=== PATIENT | female | born 1940 | race Caucasian/White ===

== ENCOUNTER 2020-06-21 14:06 | Outpatient (CLI) | payer MEDICARE, SELFPAY | END 2020-06-21 14:07 | disposition home or self-care (01) | LOC: ANHCOVIDVC 14:06 | PROVIDERS: PCP Family Medicine | DX: Z23 Encounter for immunization (principal) | CPT/HCPCS: 0001A; 91300 ==

== ENCOUNTER 2020-07-12 13:58 | Outpatient (CLI) | payer MEDICARE, SELFPAY | END 2020-07-12 13:59 | disposition home or self-care (01) | LOC: ANHCOVIDVC 13:58 | PROVIDERS: PCP Family Medicine | DX: Z23 Encounter for immunization (principal) | CPT/HCPCS: 0002A; 91300 ==

== ENCOUNTER 2021-01-07 15:48 | Outpatient (CLI) | payer MEDICARE, SELFPAY ==
--- NOTE | ~2021-01-07 | MM_ITS ---
EXAMINATION: MM screening imani BI w cameron HISTORY: Screening TECHNIQUE: Craniocaudal and mediolateral oblique 3-D tomosynthesis images were obtained and synthetic 2-D images were generated. CAD analysis was submitted and interpreted. COMPARISON: No prior mammogram is available for comparison at this institution. BREAST PARENCHYMAL COMPOSITION: Breast composed of scattered areas of fibroglandular density. FINDINGS: There are no suspicious masses, calcifications or architectural distortion in the left [address] to suggest malignancy. There is no evidence of suspicious mass, calcification, or architectural di stortion to suggest malignancy in either breast. Centered in the upper central aspect of the right br east. There is an additional focal mass inferiorly in the right breast on MLO view posteriorly. IMPRESSION: 1. Right breast mass, asymmetries and nonspecific calcifications. 2. Additional mammographic views and possible breast ultrasound are recommended. BI-RADS Category 0: Incomplete: Needs additional imaging evaluation. Reviewed, dictated and finalized at location A. IMPRESSION: 1. Right breast mass, asymmetries and nonspecific calcifications. 2. Additional mammographic views and possible breast ultrasound are recommended . BI-RADS Category 0: Incomplete: Needs additional imaging evaluation.
== END 2021-01-07 15:49 | disposition home or self-care (01) ==
LOC: ANHIMG 15:50
PROVIDERS: PCP Family Medicine; Visit Provider Family Medicine
DX: Z12.31 Encounter for screening mammogram for malignant neoplasm of breast (principal); R92.8 Other abnormal and inconclusive findings on diagnostic imaging of breast
CPT/HCPCS: 77063; 77067

== ENCOUNTER 2021-01-28 12:14 | Outpatient (CLI) | payer MEDICARE, SELFPAY ==
--- NOTE | ~2021-01-28 | MMUS_ITS ---
EXAMINATION: MM diagnostic imani RT w cameron, US breast RT complete HISTORY: Right breast mass, asymmetries and nonspecific calcifications TECHNIQUE: Additional 3-D tomosynthesis images of were performed and synthetic 2-D images were genera oren. CAD analysis was submitted and interpreted. High resolution complete right breast ultrasound inc luding all 4 quadrants and subareolar area was performed. COMPARISON: 12/30/2020 bilateral digital screening mammogram FINDINGS: MAMMOGRAPHIC FINDINGS: An approximately 7 x 18 mm mass is noted in the posterior lower central right breast (ML Tomosynthesi s image 35/70; craniocaudal Tomosynthesis image 12/51). Contiguous tubular soft tissue densities are noted. There are scattered benign calcifications of the right breast. No malignant calcification is evident. No skin thickening or retraction. ULTRASOUND: There is an irregular hypoechoic mass measuring at least 11 x 8.12 mm dimension at 6:00 position, wit h posterior shadowing. There are multiple tubular tentacle-like adjacent hypoechoic areas, some with through transmission and posterior enhancement. Ultrasound-guided biopsy of the shadowing mass is rec ommended. IMPRESSION: 1. Suspicious shadowing up to 12 mm mass at 6:00 position 2. Ultrasound-guided biopsy of 6:00 mass is recommended BI-RADS category 4, suspicious findings. Dr. Saucdea telephoned the report and ultrasound guided biopsy recommendation on 01/28/2021 at 1423 hour s to Nurse voicemail (extension [phone]) Reviewed, dictated and finalized at location A. IMPRESSION: 1. Suspicious shadowing up to 12 mm mass at 6:00 position 2. Ultrasound-guided biopsy of 6:00 mass is recommended BI-RADS category 4, suspicious findings. Dr. Sauceda telephoned the report and ultrasound guided biopsy recommendation on at 1423 hours to Nurse voicemail (extension [phone]) IMPRESSION: 1. Suspicious shadowing up to 12 mm mass at 6:00 position 2. Ultrasound-guided biopsy of 6:00 mass is recommended BI-RADS category 4, suspicious findings. Dr. Sauceda telephoned the report and ultrasound guided biopsy recommendation on at 1423 hours to Nurse voicemail (extension [phone])
== END 2021-01-28 12:15 | disposition home or self-care (01) ==
LOC: ANHIMG 12:16
PROVIDERS: PCP Family Medicine; Visit Provider Physician Assistant
DX: R92.8 Other abnormal and inconclusive findings on diagnostic imaging of breast (principal)
CPT/HCPCS: 76641; 77061; 77065; G0279

== ENCOUNTER 2021-03-12 10:02 | Outpatient (CLI) | payer MEDICARE, SELFPAY ==
--- NOTE | ~2021-03-12 | US_ITS ---
EXAMINATION: US GUIDED NEEDLE BIOPSY DATE: 03/12/2021 11:39 SAMPLE DISTRIBUTOR INDICATION: Irregular hypoechoic mass at 6:00 reported on 01/28/2021 complete right breast ultrasound examination TECHNIQUE AND FINDINGS: The risks and potential benefits of the procedure were discussed with the patient, and written inform ed consent was obtained. Timeout procedure was performed. After sterile preparation of the right [address], 1% lidocaine was utilized for local anesthesia. A 14G spring-loaded biopsy gun needle was advanced to the edge of the region of interest from a media l approach utilizing sonographic guidance. A total of 1 tissue core sample was obtained through the lesion. At that point the lesion was no longer sonographically evident, suggesting this may have been a cyst.. A sterile bandage was applied. The patient tolerated procedure well and there was no evidence of immediate complication. The patien t was given verbal instructions prior to departing from the department. The tissue sample was submitt ed to surgical pathology for histologic analysis. IMPRESSION: Successful ultrasound guided biopsy of right 6:00 breast mass, which appeared to resolve after the fi rst biopsy attempt, suggesting a cyst Please refer to pathology report for histologic analysis. Recommendation: 6 month targeted right breast ultrasound follow-up at the 6:00 biopsy site is recomme nded Reviewed, dictated and finalized at [facility]. Reviewed, dictated and finalized at location A. LE DISTRIBUTOR IMPRESSION: Successful ultrasound guided biopsy of right 6:00 breast mass, which appeared t o resolve after the first biopsy attempt, suggesting a cyst Please refer to pathology report for histologic analysis. Recommendation: 6 month targeted right breast ultrasound follow-up at the 6:00 biopsy site is recommended
== END 2021-03-12 10:03 | disposition home or self-care (01) ==
LOC: ANHIMG 10:04
PROVIDERS: PCP Family Medicine; Visit Provider Family Medicine
DX: R92.8 Other abnormal and inconclusive findings on diagnostic imaging of breast (principal)
CPT/HCPCS: 19083; 88305

== ENCOUNTER 2021-09-10 13:19 | Outpatient (CLI) | payer MEDICARE, SELFPAY ==
--- NOTE | ~2021-09-10 | MR_ITS ---
EXAMINATION: MR brain/brain stem wo/w con DATE: 09/10/2021 14:32 INDICATION: Diplopia. TECHNIQUE: Magnetic resonance imaging (MRI) of the brain and brainstem was performed without and with 12 mL MultiHance intravenous contrast. COMPARISON: None. FINDINGS: There are scattered areas of nonspecific increased T2-weighted signal intensity in the cere bral white matter, which is within normal limits for the patient's age. There is no intracranial hemo rrhage, acute infarction, or abnormal intracranial mass lesion. The ventricles are normal in size. Th ere is mild mucosal thickening in the paranasal sinuses. There are likely changes of ocular lens repl acement surgeries. The mastoid air cells are normal. IMPRESSION: 1. Normal aging brain. Reviewed, dictated and finalized at location A. IMPRESSION: 1. Normal aging brain.
== END 2021-09-10 13:20 | disposition home or self-care (01) ==
PROVIDERS: PCP Family Medicine; Visit Provider Family Medicine
DX: H53.2 Diplopia (principal)
CPT/HCPCS: 70553; A9577